=== PATIENT | female | born 1985 | race Caucasian/White ===

== ENCOUNTER 2019-12-12 11:48 | Day surgery (SDC) | payer OTHER ==
[~2019-12-12 11:48] MED LIST: PRENATAL TABLE1 EAC1 PO
== END 2019-12-12 22:59 | disposition home or self-care (01) ==
LOC: CIR.AMB 11:48
DX: D06.7 Carcinoma in situ of other parts of cervix (principal); N72 Inflammatory disease of cervix uteri

== ENCOUNTER 2025-06-18 16:15 | Outpatient (CLI) | payer OTHER ==
[2025-06-18 16:59] VITALS: BP 123/83
[2025-06-18] MEDS ORDERED: RINGERS SOLUTION,LACTATED 1,000 ML IV SCH (17:30)
[2025-06-18] MEDS ORDERED: GUAIFENESIN 200 MG/10 ML BLIST.PACK PO SCH ×2 (18:00→20:00)
[2025-06-18] MEDS ORDERED: PRENATA CHEWAB1 EACH PO (18:36)
[2025-06-18 19:39] LABS: BASO % 0.2 % (0.1-1.2); EOS # 0.03 (0.04-0.54); EOS % 0.4 % (0.7-7.0); LYMPH # 1.68 (1.18-3.74); LYMPH % 20.6 % (19.3-53.1); MEAN PLATELET VOLUME 11.60 fl (9.4-12.4); MONO # 0.66 (0.24-0.82); MONO % 8.1 % (4.7-12.5); NEUT # 5.66 (1.56-6.13); NEUT % 69.2 % (34.0-71.1); RED CELL DISTRIBUTION WIDTH 13.2 % (11.6-14.4)
[2025-06-18 19:40] VITALS: BP 112/71
[2025-06-18 19:42] LABS: URINE APPEARANCE Clear; URINE BILIRRUBIN Negative (NEGATIVE); URINE BLOOD Negative; URINE COLOR Yellow; URINE GLUCOSE Negative (NEGATIVE); URINE KETONE Negative (NEGATIVE); URINE LEUKOCYTE Negative; URINE NITRATE Negative; URINE PROTEIN Negative (NEGATIVE); URINE UROBILINOGEN 1.0 E.U./dl
[2025-06-18 19:43] LABS: URINE BACTERIA 370.7 uL (0.0-1933); URINE EPITHELIAL CELLS 11.6 uL (0.0-38.8); URINE WBC 7.0 uL (0.0-23.2)
[2025-06-18 19:48] LABS: URINE CAST 0.00 uL (0.0-1.40); URINE RBC 1.3 uL (0.0-20.8)
[2025-06-18 22:28] VITALS: BP 112/71
== END 2025-06-18 22:28 | disposition home or self-care (01) ==
LOC: OBS/DEL 16:15
PROVIDERS: ATTEND Obstetrics & Gynecology
DX: O26.893 Other specified pregnancy related conditions, third trimester (principal); Z3A.35 35 weeks gestation of pregnancy

== ENCOUNTER 2025-07-16 07:29 | Inpatient (IN) | payer OTHER ==
[2025-07-16] VITALS (8 sets, daily range): BP systolic 122–137; BP diastolic 69–86
[~2025-07-16] VITALS: Ht 162.6 cm; Wt 83.9 kg
[~2025-07-16 07:29] MED LIST changes: +PRENATA CHEWAB1 EACH PO
[2025-07-16 09:03] LABS: BASO % 0.5 % (0.1-1.2); EOS # 0.05 (0.04-0.54); EOS % 0.5 % (0.7-7.0); LYMPH # 1.83 (1.18-3.74); LYMPH % 17.8 % (19.3-53.1); MEAN PLATELET VOLUME 11.60 fl (9.4-12.4); MONO # 0.60 (0.24-0.82); MONO % 5.8 % (4.7-12.5); NEUT # 7.60 (1.56-6.13); NEUT % 74.1 % (34.0-71.1); RED CELL DISTRIBUTION WIDTH 13.0 % (11.6-14.4)
[2025-07-16 09:09] LABS: URINE APPEARANCE Clear; URINE BILIRRUBIN Negative (NEGATIVE); URINE BLOOD Negative; URINE COLOR Yellow; URINE GLUCOSE Negative (NEGATIVE); URINE KETONE Negative (NEGATIVE); URINE LEUKOCYTE Negative; URINE NITRATE Negative; URINE PROTEIN Negative (NEGATIVE); URINE UROBILINOGEN 1.0 E.U./dl
[2025-07-16 09:14] LABS: URINE BACTERIA 402.3 uL (0.0-1933); URINE EPITHELIAL CELLS 3.8 uL (0.0-38.8); URINE WBC 3.8 uL (0.0-23.2)
[2025-07-16] MEDS ORDERED: RINGERS SOLUTION,LACTATED 1,000 ML IV SCH (09:15)
[2025-07-16 09:22] LABS: INR < 0.93
[2025-07-16 09:25] LABS: URINE CAST 0.14 uL (0.0-1.40); URINE RBC 0.5 uL (0.0-20.8)
[2025-07-16] MEDS ORDERED: OXYTOCIN 20 UNITS/500ML RL PIGGYBAG IV SCH (11:00)
[2025-07-16] MEDS ORDERED: OXYTOCIN 20 UNITS/1000ML RL PIGGYBAG IV ONE (14:51)
[2025-07-16] MEDS ORDERED: ERYTHROMYCIN BASE OPHT 1GM EACH TUBE OP ONE (14:51)
[2025-07-16] MEDS ORDERED: CHLORHEXIDINE GLUCONATE 120 ML BOTTLE TOP ONE (14:52)
[2025-07-16] MEDS ORDERED: LIDOCAINE HCL 1% 10ML VIAL ONE (14:52)
[2025-07-16] MEDS ORDERED: CHLORHEXIDINE GLUCONATE 120 ML BOTTLE TP SCH (16:30)
[2025-07-16] MEDS ORDERED: OXYTOCIN 1,000 ML IV SCH (16:30)
[2025-07-16] MEDS ORDERED: ACETAMINOPHEN 500 MG GEL..CAP PO PRN (16:30)
[2025-07-16 20:28] LABS: BASO % 0.2 % (0.1-1.2); EOS # 0.01 (0.04-0.54); EOS % 0.1 % (0.7-7.0); LYMPH # 1.13 (1.18-3.74); LYMPH % 6.1 % (19.3-53.1); MEAN PLATELET VOLUME 11.70 fl (9.4-12.4); MONO # 0.93 (0.24-0.82); MONO % 5.0 % (4.7-12.5); NEUT # 16.34 (1.56-6.13); NEUT % 87.8 % (34.0-71.1); RED CELL DISTRIBUTION WIDTH 12.7 % (11.6-14.4)
[2025-07-17] VITALS: BP 112/75
[2025-07-17 08:00] VITALS: BP 117/83
[2025-07-17] MEDS ORDERED: PNV,CALCIUM 72/IRON/FOLIC ACID 1 TAB TABLET PO SCH (09:00)
[2025-07-17 17:02] VITALS: BP 124/80
[2025-07-18 00:18] VITALS: BP 114/70
[2025-07-18 08:58] VITALS: BP 131/85
== END 2025-07-18 12:35 | disposition home or self-care (01) | DRG 807 ==
LOC: LDR 07:29 → OB/GYN 07:29
PROVIDERS: ADMIT Obstetrics & Gynecology; ATTEND Obstetrics & Gynecology
PROC: 10E0XZZ Delivery of Products of Conception, External Approach (ICD-10-PCS; principal; 2025-07-16)
PROC: 0KQM0ZZ Repair Perineum Muscle, Open Approach (ICD-10-PCS; 2025-07-16)
PROC: 4A1HXCZ Monitoring of Products of Conception, Cardiac Rate, External Approach (ICD-10-PCS; 2025-07-16)
DX: O70.1 Second degree perineal laceration during delivery (principal); Z37.0 Single live birth; Z3A.38 38 weeks gestation of pregnancy